=== PATIENT | male | born 1995 | race Caucasian/White ===

== ENCOUNTER → 2017-02-02 | Outpatient (CLI) | payer OTHER ==
[~2017-02-02] MED LIST: AZITHROMYCIN D250 M1 PO; MEDROL 4MG. DOSE4 MG PO; NOMEDS; ZITHROMAX 250M250 MG PO
--- NOTE | 2017-02-02 14:24 | RADIOLOGY REPORT PS360 ---
HIP LT 2-3V W/PELVIS IF PERFOR HISTORY: LEFT HIP PAIN OFF AND ON FOR 2 YRS ORDERING PHYSICIAN: Tabitha Mar MD PATIENT AGE: 21 years COMPARISON: None FINDINGS: No fracture or dislocation is evident. No significant degenerative change. No lytic or blastic change. Unremarkable soft tissues IMPRESSION: Negative left hip
== END ==
LOC: RAD 11:53
DX: M25.552 Pain in left hip (principal)